=== PATIENT | female | born 1970 | race Caucasian/White ===

== ENCOUNTER 2021-08-18 09:42 | Emergency (ER) | payer BC ==
[2021-08-18] MEDS ORDERED: ONDANSETRON 4 MG/2 ML VIAL IVP STA (13:17)
[2021-08-18] MEDS ORDERED: SODIUM CHLORIDE 0.9% 1,000 ML IV STA (13:17)
--- NOTE | 2021-08-18 13:20 | ED Physician Documentation ---
History of Present Illness - Stated complaint Stated Complaint: C+ NAUSEA/DIZZINESS/MUSCLE ACHES - Chief complaint Chief Complaint: Resp - Additonal information Additional information: 50-year-old female presents to the emergency department for evaluation of 3 to 4 days generalized fatigue myalgias cough as well as diarrhea. She is vaccinated boosted for COVID but did test +2 days ago. She would decline molnupirivir and paxlovid. Patient does have a history of a gastric bypass. She also has a history of hypertension though has been weaned from her antihypertensives as of recently. Denies any history of cardiac or pulmonary disorders. Non-smoker. Patient reports that she has been having 4 watery stools a day. Anytime she eats she coughs so violently she begins to vomit. Review of Systems Constitutional: reports: Fever, Chills, Myalgias Eyes: reports: Reviewed and negative Ears: reports: Reviewed and negative Nose: reports: Reviewed and negative Throat: reports: Reviewed and negative Cardiac: reports: Reviewed and negative Respiratory: reports: Cough. denies: Hemoptysis GI: reports: Nausea, Vomiting, Diarrhea : reports: Reviewed and negative Skin: reports: Reviewed and negative PD PAST MEDICAL HISTORY - Present Medications Home Medications: Ambulatory Orders Medication Instructions Recorded Confirmed Benzonatate [Tessalon] 100 mg PO TID PRN #20 cap 08/18/21 Ondansetron Odt [Zofran] 4 mg TL Q6H PRN #10 tablet 08/18/21 - Allergies Allergies/Adverse Reactions: Allergies Allergy/AdvReac Type Severity Reaction Status Date / Time morphine Allergy Unknown Verified 08/18/21 10:11 Penicillins Allergy Rash Verified 08/18/21 10:11 PD ED PE NORMAL - General General: Alert and oriented X 3, No acute distress, Well developed/nourished - HEENT HEENT: Atraumatic, Moist mucous membranes, Pharynx benign - Neck Neck: Supple, no meningeal sign, No adenopathy - Cardiac Cardiac: RRR, No murmur - Respiratory Respiratory: No respiratory distress, Clear bilaterally - Abdomen Abdomen: Normal bowel sounds, Soft, Non tender - Back Back: No CVA TTP - Derm Derm: Normal color, Warm and dry, No rash - Extremities Extremities: No deformity, No tenderness to palpate, Normal ROM s pain - Neuro Neuro: Alert and oriented X 3, 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 Eye Opening: Spontaneous Motor: Obeys Commands Verbal: Oriented GCS Score: 15 Results - Vitals Vitals: Vital Signs - 24 hr 08/18/21 08/18/21 08/18/21 10:07 12:14 13:10 Temperature 36.7 C 36.5 C 37.3 C Heart Rate 99 88 75 Respiratory 16 82 H 18 Rate Blood Pressure 135/91 H 126/86 H 137/88 H O2 Saturation 100 99 100 Oxygen O2 Source Room air - Labs Labs: Laboratory Tests 08/18/21 08/18/21 13:45 13:45 WBC 3.7 L RBC 4.53 Hgb 12.7 Hct 39.4 MCV 87.0 MCH 28.0 MCHC 32.2 RDW 12.7 Plt Count 274 MPV 8.8 Neut # (Auto) 1.5 Lymph # (Auto) 1.6 Preston # (Auto) 0.5 Eos # (Auto) 0.1 Baso # (Auto) 0.0 Absolute Nucleated RBC 0.00 Nucleated RBC % 0.0 Sodium 139 Potassium 3.7 Chloride 106 Carbon Dioxide 24 Anion Gap 9.0 BUN 8 Creatinine 0.6 Estimated GFR (MDRD) 106 Glucose 94 Calcium 9.3 Total Bilirubin 0.5 AST 46 H ALT 57 Alkaline Phosphatase 79 Total Protein 7.6 Albumin 3.9 Globulin 3.7 Albumin/Globulin Ratio 1.1 Lipase 36 - Rads (name of study) cxr Radiology: Final report received (No evidence of acute cardiopulmonary abnormality.) PD MEDICAL DECISION MAKING - ED course Complexity details: reviewed results, re-evaluated patient, considered differential, d/w patient ED course: 50-year-old female presents to the emergency department for evaluation of fatigue, cough myalgias, fever as well as diarrhea for the last few days. She tested positive for COVID-19 yesterday. She is vaccinated and boosted. She does report a history of hypertension for which she has been able to wean off of her medications as well as a previous gastric bypass. She states that she feels dehydrated. Clinically her exam is very reassuring without hypoxia tachypnea or respiratory distress. Chest x-ray is negative. Her abdominal exam was negative for any elicited tenderness though she does have hyperactive bowel sounds. Here in the emergency department she was administered Tessalon Perles and a dose of Imodium. She is also given a liter of IV fluid. Screening labs reveal a very mild leukopenia which is consistent with a history of COVID-19. Her electrolytes are unrevealing without findings of LFT or renal abnormality. We did discuss ED each ear authorization use for oral antivirals but she declines them at this time. She is recommended fluids and rest at home. A prescription for Tessalon Perles, Zofran has been sent to the pharmacy of her choice. Emergent return precautions discussed. Departure - Departure Disposition: Home, Self Care Clinical Impression: COVID-19 virus infection Diarrhea Qualifiers: Diarrhea type: unspecified type Qualified Code(s): R19.7 - Diarrhea, unspecified Condition: Stable Record reviewed to determine appropriate education?: Yes Instructions: ED Diet Vomiting Diarrhea, ED Viral Syndrome Follow-Up: ROSS DOCKERY MD [Primary Care Provider] - Prescriptions: Benzonatate [Tessalon] 100 mg PO TID PRN #20 cap PRN Reason: Cough Ondansetron Odt [Zofran] 4 mg TL Q6H PRN #10 tablet PRN Reason: Nausea / Vomiting Comments: Leora armstrong are seen today in the emergency department for cough vomiting and diarrhea in the setting of COVID-19 infection. Your vital signs are essentially normal. Your oxygen levels are normal. Your chest x-ray is normal without any findings to suggest pneumonia. Your screening labs are essentially normal with the exception of a very mildly reduced white blood cell count. This is a very common finding in COVID-19 infection and requires no further action. Your electrolytes kidney and liver function are all normal. Here in the emergency department we did administer you a nausea medicine, cough and diarrhea medication. We also gave you a liter of IV fluids. You do not appear dehydrated. When you go home I want you to have frequent small sips of Clear liquids such as soda, juice Gatorade or broth. I sent a prescription to the [facility] in [place] for some cough medication as well as nausea medication. You can take an additional dose or 2 of Imodium [id number] to help with diarrhea. In general I would expect you to feel fatigued have body aches and diarrhea for about 5 to 7 days though it should gently improve. If at any point you develop sudden severe chest pain, have shortness of air or cannot breathe adequately then please return to the ER
--- NOTE | 2021-08-18 13:49 | XRAY Report ---
PROCEDURE: Chest 1 View X-Ray INDICATIONS: covid 19 TECHNIQUE: One view of the chest was acquired. COMPARISON: None FINDINGS: Surgical changes and devices: Postsurgical changes of the upper abdomen.. Lungs and pleura: No pleural effusions or pneumothorax. Lungs are clear. Mediastinum: Mediastinal contours appear normal. Heart size is normal. Bones and chest wall: No suspicious bony lesions. Overlying soft tissues appear unremarkable. IMPRESSION: No evidence of an acute cardiopulmonary abnormality. Reviewed by: Taurus Bobby DO on 08/18/2021 12:48 PM CLAUDIA Approved by: Taurus Bobby DO on 08/18/2021 12:48 PM CLAUDIA Station ID: [id number]
[2021-08-18 13:54] LABS: BASOPHILS % (AUTO) 0.3 %; EOSINOPHILS # (AUTO) 0.1 10^3/uL (0.0-0.7); EOSINOPHILS % (AUTO) 1.6 %; HCT - HEMATOCRIT 39.4 % (37.0-47.0); HGB - HEMOGLOBIN 12.7 g/dL (12.0-16.0); LYMPHOCYTES # (AUTO) 1.6 10^3/uL (1.5-3.5); LYMPHOCYTES % (AUTO) 44.2 %; MEAN CORPUSCULAR HGB CONC 32.2 g/dL (32.0-36.0); MEAN PLATELET VOLUME 8.8 fL (7.9-10.8); MONOCYTES # (AUTO) 0.5 10^3/uL (0.0-1.0); MONOCYTES % (AUTO) 13.3 %; NEUTROPHILS # (AUTO) 1.5 10^3/uL (1.5-6.6); NEUTROPHILS % (AUTO) 40.6 %; PLT - PLATELET COUNT 274 10^3/uL (130-450); RED BLOOD COUNT 4.53 10^6/uL (4.20-5.40); RED CELL DISTRIBUTION WIDTH 12.7 % (12.0-15.0); WHITE BLOOD COUNT 3.7 x10^3/uL (4.8-10.8)
[2021-08-18] MEDS ORDERED: BENZONATATE 100 MG CAPSULE PO STA (14:20)
[2021-08-18 14:28] LABS: ALBUMIN 3.9 g/dL (3.2-5.5); ALBUMIN/GLOBULIN RATIO 1.1 (1.0-2.2); BILIRUBIN,TOTAL 0.5 mg/dL (0.2-1.0); CALCIUM 9.3 mg/dL (8.5-10.3); CREATININE 0.6 mg/dL (0.4-1.0); POTASSIUM 3.7 mmol/L (3.5-5.0); TOTAL PROTEIN 7.6 g/dL (6.7-8.2)
[2021-08-18] MEDS ORDERED: LOPERAMIDE 2 MG CAPSULE PO STA (14:33)
[2021-08-18 14:42] VITALS: BP 131/82
== END 2021-08-18 15:02 | disposition home or self-care (01) ==
LOC: ED 09:42
DX: U07.1 COVID-19 (principal)
CPT/HCPCS: 36415; 71045; 80053; 83690; 85025; 96374; 99284; A9270

== ENCOUNTER 2021-09-11 07:11 | Outpatient (CLI) | payer BC ==
[2021-09-11 07:48] LABS: BASOPHILS % (AUTO) 0.3 %; EOSINOPHILS # (AUTO) 0.1 10^3/uL (0.0-0.7); EOSINOPHILS % (AUTO) 2.4 %; HCT - HEMATOCRIT 35.8 % (37.0-47.0); HGB - HEMOGLOBIN 11.9 g/dL (12.0-16.0); LYMPHOCYTES # (AUTO) 2.3 10^3/uL (1.5-3.5); LYMPHOCYTES % (AUTO) 39.2 %; MEAN CORPUSCULAR HEMOGLOBIN 28.3 pg (27.0-31.0); MEAN CORPUSCULAR HGB CONC 33.2 g/dL (32.0-36.0); MEAN PLATELET VOLUME 8.9 fL (7.9-10.8); MONOCYTES # (AUTO) 0.4 10^3/uL (0.0-1.0); MONOCYTES % (AUTO) 6.8 %; NEUTROPHILS % (AUTO) 51.1 %; PLT - PLATELET COUNT 314 10^3/uL (130-450); RED BLOOD COUNT 4.21 10^6/uL (4.20-5.40); RED CELL DISTRIBUTION WIDTH 13.2 % (12.0-15.0); WHITE BLOOD COUNT 5.9 x10^3/uL (4.8-10.8)
[2021-09-11 08:09] LABS: % IRON SATURATION 11 % (20-50); ALBUMIN 3.9 g/dL (3.2-5.5); ALBUMIN/GLOBULIN RATIO 1.4 (1.0-2.2); ALKALINE PHOSPHATASE 71 IU/L (42-121); ALT ALANINE AMINOTRANSFERASE 50 IU/L (10-60); AST ASPARTATE AMINOTRANSFERASE 34 IU/L (10-42); BILIRUBIN,TOTAL 0.6 mg/dL (0.2-1.0); BUN - BLOOD UREA NITROGEN 12 mg/dL (6-20); CALCIUM 9.2 mg/dL (8.5-10.3); CARBON DIOXIDE - CO2 21 mmol/L (21-32); CHLORIDE 109 mmol/L (101-111); CHOL/HDL RATIO 3.1 (<4.4); CHOLESTEROL 223 mg/dL; CREATININE 0.7 mg/dL (0.4-1.0); GFR - MDRD 89 (>89); GLUCOSE 113 mg/dL (70-100); HDL CHOLESTEROL 73 mg/dL; IRON 51 ug/dL (28-170); LDL CHOLESTEROL,CALCULATED 128 mg/dL; LDL/HDL RATIO 1.8 (<4.4); POTASSIUM 3.4 mmol/L (3.5-5.0); SODIUM 140 mmol/L (135-145); TOTAL IRON BINDING CAPACITY 475 ug/dL (250-450); TOTAL PROTEIN 6.7 g/dL (6.7-8.2); TRANSFERRIN 339 mg/dL (192-382); TRIGLYCERIDES 108 mg/dL; VLDL CHOLESTEROL 22 mg/dL
[2021-09-11 08:21] LABS: THYROID STIMULATING HORMONE 2.92 uIU/mL (0.34-5.60)
[2021-09-11 08:29] LABS: FERRITIN 16.3 ng/mL (11.0-306.8)
[2021-09-11 08:50] LABS: FOLLICLE STIMULATING HORMONE 65.18 mIU/mL
[2021-09-11 14:27] LABS: ESTIMATED AVERAGE GLUCOSE 114 mg/dL (70-100); HEMOGLOBIN A1c% 5.6 % (4.27-6.07)
== END 2021-09-11 07:12 | disposition home or self-care (01) ==
LOC: LAB 07:11
PROVIDERS: ATTEND Internal Medicine
DX: I10 Essential (primary) hypertension (principal); R42 Dizziness and giddiness; E60 Dietary zinc deficiency; E55.9 Vitamin D deficiency, unspecified; E53.8 Deficiency of other specified B group vitamins; N95.1 Menopausal and female climacteric states; Z98.84 Bariatric surgery status
CPT/HCPCS: 36415; 80053; 80061; 82306; 82607; 82670; 82728; 82746; 83001; 83036; 83540; 83721; 84443; 84466; 84630; 85025

== ENCOUNTER 2021-11-13 14:19 | Outpatient (CLI) | payer BC ==
[2021-11-13 14:28] LABS: BASOPHILS % (AUTO) 0.6 %; EOSINOPHILS # (AUTO) 0.2 10^3/uL (0.0-0.7); EOSINOPHILS % (AUTO) 2.3 %; HCT - HEMATOCRIT 37.3 % (37.0-47.0); HGB - HEMOGLOBIN 11.9 g/dL (12.0-16.0); LYMPHOCYTES # (AUTO) 2.5 10^3/uL (1.5-3.5); LYMPHOCYTES % (AUTO) 34.5 %; MEAN CORPUSCULAR HEMOGLOBIN 27.8 pg (27.0-31.0); MEAN CORPUSCULAR HGB CONC 31.9 g/dL (32.0-36.0); MEAN CORPUSCULAR VOLUME 87.1 fL (81.0-99.0); MEAN PLATELET VOLUME 8.6 fL (7.9-10.8); MONOCYTES # (AUTO) 0.5 10^3/uL (0.0-1.0); MONOCYTES % (AUTO) 6.9 %; NEUTROPHILS % (AUTO) 55.6 %; PLT - PLATELET COUNT 296 10^3/uL (130-450); RED BLOOD COUNT 4.28 10^6/uL (4.20-5.40); RED CELL DISTRIBUTION WIDTH 13.4 % (12.0-15.0); WHITE BLOOD COUNT 7.3 x10^3/uL (4.8-10.8)
[2021-11-13 15:00] LABS: ALBUMIN 4.3 g/dL (3.2-5.5); ALBUMIN/GLOBULIN RATIO 1.6 (1.0-2.2); BILIRUBIN,TOTAL 0.4 mg/dL (0.2-1.0); CALCIUM 9.4 mg/dL (8.5-10.3); CREATININE 0.7 mg/dL (0.4-1.0); POTASSIUM 3.7 mmol/L (3.5-5.0)
== END 2021-11-13 14:20 | disposition home or self-care (01) ==
LOC: LAB 14:19
PROVIDERS: ATTEND Internal Medicine
DX: E61.1 Iron deficiency (principal); R53.83 Other fatigue
CPT/HCPCS: 36415; 80053; 82728; 83540; 84466; 85025

== ENCOUNTER 2021-11-25 18:15 | Outpatient (CLI) | payer BC ==
--- NOTE | 2021-11-26 09:55 | XRAY Report ---
PROCEDURE: Sacrum/Coccyx INDICATIONS: LOW BACK PAIN TECHNIQUE: 3 views of the sacrum and coccyx acquired. COMPARISON: None FINDINGS: Bones: No fractures or dislocations. Bilateral sacroiliac joint spaces are fairly well preserved. N o gross bony erosion or ankylosis. No suspicious bony lesions. Soft tissues: Visualized bowel gas pattern is normal. No suspicious soft tissue densities. IMPRESSION: No sacral or coccygeal fracture. Normal-appearing bilateral sacroiliac joints. Reviewed by: Raheem Power MD on 11/26/2021 9:54 AM PDT Approved by: Raheem Power MD on 11/26/2021 9:54 AM PDT Station ID: [id number]
--- NOTE | 2021-11-26 09:55 | XRAY Report ---
PROCEDURE: Lumbar Spine 2 View INDICATIONS: LOW BACK PAIN TECHNIQUE: 2 views of the lumbar spine were acquired. COMPARISON: None. FINDINGS: Bones: 5 [id number] vertebrae are present. There is normal bony alignment. Bilateral facet art hrosis throughout lumbar spine is seen. Very mild degenerative endplate changes at L4-5 and L5-S1 lev els. No vertebral body compression fractures. No suspicious bony lesions. Soft tissues: Overlying bowel gas pattern is normal. No suspicious soft tissue calcifications. IMPRESSION: Very mild degenerative disc disease in lower lumbar spine. Bilateral facet arthrosis. No compression fracture or spondylolisthesis. Reviewed by: Raheem Power MD on 11/26/2021 9:53 AM PDT Approved by: Raheem Power MD on 11/26/2021 9:53 AM PDT Station ID: [id number]
== END 2021-11-25 18:16 | disposition home or self-care (01) ==
LOC: DI 18:15
PROVIDERS: ATTEND Internal Medicine
DX: M51.36 Other intervertebral disc degeneration, lumbar region (principal); M51.37 Other intervertebral disc degeneration, lumbosacral region; M47.816 Spondylosis without myelopathy or radiculopathy, lumbar region; M47.817 Spondylosis without myelopathy or radiculopathy, lumbosacral region

== ENCOUNTER 2023-08-19 18:38 | Outpatient (CLI) | payer BC ==
--- NOTE | 2023-08-19 22:13 | CT Report ---
PROCEDURE: Lumbar Spine WO INDICATIONS: SPONDYLOSTHESIS OF LUMBAR REGION TECHNIQUE: Helical axial CT of the lumbar spine was obtained without contrast and reformatted in mul tiple planes. Radiation dose reduction was achieved utilizing automated exposure control or adjustmen t of mA and/or kV according to patient size. COMPARISON: None. FINDINGS: Bones: There is normal bony alignment. No acute vertebral body compression fractures. No suspiciou s lytic or blastic bony lesions. Central spinal caliber is of normal overall caliber. No pars defec ts. Soft tissues: No retroperitoneal masses or hematomas. Visualized aorta is normal in caliber. L4-5 interbody fusion with posterior jonny and screw instrumentation well-positioned. T12-L1: Normal in appearance. L1-L2: Normal in appearance. L2-L3: Normal in appearance. L3-L4: Disc height is preserved. Disc bulge with mild central stenosis appear no foraminal stenosis L4-L5: Instrumented discectomy and fusion L5-S1: Disc space narrowing. Mild central stenosis appear no foraminal stenosis. IMPRESSION: Instrumented discectomy and fusion L4-5 in good position. No hardware failure or loosening. No evidence of spondylolisthesis Reviewed by: Carlos Chaudhry MD on 08/19/2023 9:11 PM CLAUDIA Approved by: Carlos Chaudhry MD on 08/19/2023 9:11 PM AKNAKUL Station ID: [id number]
== END 2023-08-19 18:39 | disposition home or self-care (01) ==
LOC: DI 18:38
PROVIDERS: ATTEND Orthopaedic Surgery Orthopaedic Surgery of the Spine
DX: M43.16 Spondylolisthesis, lumbar region (principal); Z98.1 Arthrodesis status

== ENCOUNTER 2023-09-08 07:18 | Outpatient (CLI) | payer BC ==
--- NOTE | 2023-09-08 10:36 | MRI Report ---
PROCEDURE: Lumbar Spine WO INDICATIONS: BACK AND BUTTOCK PAIN, S/P LUMBAR FUSION TECHNIQUE: Noncontrast sagittal T1 spin echo and T2 fast echo, sagittal STIR, axial T1 and T2 fast spin echo thr ough the lumbar spine. In cases with scoliosis, additional coronal T2 fast spin echo may be performe d. COMPARISON: Lumbar spine CT dated 08/19/2023. FINDINGS: Image quality: Excellent. Alignment and Curvature: There is normal bony alignment. Remote posterior lateral jonny and pedicle s crew fixation and left hemilaminectomy and posterior lateral jonny and pedicle screw fixation and inter body fusion material placement at L4-L5. Bone Marrow: Marrow is of normal overall signal. No acute vertebral body compression fractures. Spinal Cord: Conus medullaris terminates at the L1-L2 level. Visualized cord demonstrates normal si gnal and size. Paraspinous Soft Tissues: No paravertebral masses. T12-L1: Normal in appearance. L1-L2: Normal in appearance. L2-L3: Normal in appearance. L3-L4: Minimal disc bulge. Mild facet hypertrophy. No canal stenosis or foraminal stenosis. L4-L5: Posterior decompression, posterior lateral fusion, interbody fusion. Facet hypertrophy. No c anal stenosis or foraminal stenosis. L5-S1: Annulus tear plus disc bulge. Facet hypertrophy. No canal stenosis. Left foraminal annulus t ear plus disc bulge with flattening defect on the exiting left L5 nerve root. Reference sagittal T2 i mage 12 of series 3. IMPRESSION: 1.. Expected appearance of surgical level, L4-L5. 2.. Multilevel lower lumbar facet arthropathy. 3. No canal stenosis. 4. A left foraminal annulus tear plus disc bulge at L5-S1 results in flattening deformity on the exit ing left L5 nerve root. Recommend correlation for presence or absence of left L5 radicular symptoms. Reviewed by: Rd Montano MD on 09/08/2023 10:34 AM PDT Approved by: Rd Montano MD on 09/08/2023 10:34 AM PDT Station ID: [id number]
== END 2023-09-08 07:19 | disposition home or self-care (01) ==
LOC: DI 07:18
PROVIDERS: ATTEND Orthopaedic Surgery Orthopaedic Surgery of the Spine
DX: M51.36 Other intervertebral disc degeneration, lumbar region (principal); M51.17 Intervertebral disc disorders with radiculopathy, lumbosacral region; M47.817 Spondylosis without myelopathy or radiculopathy, lumbosacral region; Z98.1 Arthrodesis status; M47.816 Spondylosis without myelopathy or radiculopathy, lumbar region